=== PATIENT | female | born 1955 | race Caucasian/White ===

== ENCOUNTER 2019-03-27 14:12 | Emergency (ER) | payer BC ==
[2019-03-27] MEDS ORDERED: Levofloxacin 250 MG Tab PO ONE (14:38)
[2019-03-27] MEDS ORDERED: Phenazopyridine 95 MG Tab PO ONE (14:38)
--- NOTE | 2019-03-27 14:50 | EDM.PDOC ---
ED HPI GENERAL MEDICAL PROBLEM - General Chief Complaint: Genitourinary Problem Stated Complaint: PAIN WHILE URINATING Time Seen by Provider: 03/27/19 14:27 Source of Information: Reports: Patient History Limitations: Reports: No Limitations - History of Present Illness INITIAL COMMENTS - FREE TEXT/NARRATIVE: 63-year-old female presents to the ED with acute onset of dysuria on Thursday evening March 25. Yesterday wasn't too bad she noticed that she had mild dysuria and some frequency. Overnight however things worsen to the point that she is now voiding every 15 minutes with a strong sense of urgency and severe dysuria. She did have some nausea and vomiting 1 on Thursday night and one diarrhea stool and then is better. She doesn't think she is running a fever and has no back pain. Currently she has lower abdominal discomfort mostly suprapubically. He said urinary tract infections before but not for a lengthy period of time. Onset: Sudden Onset Date: 03/25/19 (Mild dysuria Thursday night.) Duration: Day(s):, Getting Worse Location: Reports: Abdomen (Suprapubic lower abdomen with urinary frequency) Quality: Reports: Burning ( and urgency almost every 15-20 minutes severe dysuria and now noted blood in the urine. ) Severity: Severe Improves with: Reports: None Worsens with: Reports: None Associated Symptoms: Reports: No Other Symptoms Treatments [employer] SUPERINTENDENT: Reports: Other (see below) Other Treatments [employer] SUPERINTENDENT: motrin Right Lower Bladder Pain Score (Numeric/FACES): 9 - Related Data Allergies Allergy/AdvReac Type Severity Reaction Status Date / Time No Known Allergies Allergy Verified 03/27/19 14:28 Home Meds: Home Meds Phenazopyridine HCl [Pyridium] 100 mg PO Q6H PRN #4 tablet 03/27/19 [Rx] levoFLOXacin [Levaquin] 500 mg PO DAILY #6 tab 03/27/19 [Rx] Past Medical History - Past Health History Medical/Surgical History: Denies Medical/Surgical History Genitourinary History: Reports: Other (See Below) (Occasional UTI in the past) Social & Family History - Tobacco Use Smoking Status *Q: Never Smoker - Caffeine Use Caffeine Use: Reports: Coffee, Tea - Recreational Drug Use Recreational Drug Use: No - Living Situation & Occupation Living situation: Reports: ED ROS GENERAL - Review of Systems Review Of Systems: See Below Constitutional: Reports: Malaise, Fatigue (From being up a lot during the night to void.). Denies: Fever, Chills HEENT: Reports: Glasses Respiratory: Reports: No Symptoms Cardiovascular: Reports: No Symptoms Endocrine: Reports: No Symptoms GI/Abdominal: Reports: Abdominal Pain (Suprapubic abdominal pain related to dysuria urgency and frequency. She has terminal dysuria as well) : Reports: Dysuria, Frequency, Hematuria (Terminal dysuria urine turned bloody this afternoon), Urgency, Other. Denies: Flank Pain Musculoskeletal: Reports: No Symptoms Skin: Reports: No Symptoms Neurological: Reports: No Symptoms Psychiatric: Reports: No Symptoms Hematologic/Lymphatic: Reports: No Symptoms Immunologic: Reports: No Symptoms ED EXAM, RENAL/ - Physical Exam Exam: See Below Exam Limited By: No Limitations General Appearance: Alert, WD/WN, Mild Distress, Other (Pulses 125 at rest. Respiratory 20. She appears to be quite anxious. BP elevated at 178/94.) Respiratory/Chest: No Respiratory Distress, Lungs Clear, Normal Breath Sounds, No Accessory Muscle Use, Chest Non-Tender Cardiovascular: Normal Peripheral Pulses, No Murmur, No Rub, Tachycardia ( Resting tachycardia at 1 15/m.) GI/Abdominal: Normal Bowel Sounds, Soft, Tender (Tender suprapubically only.) Back Exam: No: CVA Tenderness (L), CVA Tenderness (R), Paraspinal Tenderness Extremities: Normal Inspection, Normal Range of Motion, Non-Tender, No Pedal Edema Neurological: Alert, Oriented, CN II-XII Intact, Normal Cognition Psychiatric: Anxious Skin Exam: Warm, Dry, Intact, Normal Color, No Rash Course - Vital Signs Last Recorded V/S: Last Vital Signs Temp 36.7 C 03/27/19 14:27 Pulse 125 H 03/27/19 14:27 Resp 20 03/27/19 14:27 BP 178/94 H 03/27/19 14:27 Pulse Ox 98 03/27/19 14:27 - Orders/Labs/Meds Orders: Active Orders 24 hr Category Date Time Status CULTURE URINE [RM] Stat Lab 03/27/19 14:50 Received Phenazopyridine [Urinary Pain Relief] Med 03/27/19 19:00 Active 95 mg PO TIDPC Medication Orders Phenazopyridine HCl (Urinary Pain Relief) 95 mg PO TIDPC TRACY Labs: Laboratory Tests 03/27/19 Range/Units 14:50 Urine Color Brown H (Yellow) Urine Appearance Cloudy H (Clear) Urine pH 6.0 (5.0-8.0) Ur Specific Barney 1.025 (1.005-1.030) Urine Protein 3+ H (Negative) Urine Glucose (UA) Negative (Negative) Urine Ketones 1+ H (Negative) Urine Occult Blood 3+ H (Negative) Urine Nitrite Positive H (Negative) Urine Bilirubin 1+ H (Negative) Urine Urobilinogen 1.0 (0.2-1.0) Ur Leukocyte Esterase Negative (Negative) Urine RBC Too numerous to cnt H (0-5) /hpf Urine WBC 0-5 (0-5) /hpf Ur Epithelial Cells Not seen (0-5) /hpf Urine Bacteria Few (FEW) /hpf Urine Mucus Few (FEW) /hpf Meds: Medications Generic Name Dose Route Start Last Admin Trade Name Freq PRN Reason Stop Dose Admin Phenazopyridine HCl 95 mg 03/27/19 19:00 Urinary Pain Relief PO TIDPC TRACY Discontinued Medications Generic Name Dose Route Start Last Admin Trade Name Freq PRN Reason Stop Dose Admin Levofloxacin 500 mg 03/27/19 14:38 03/27/19 15:02 Levaquin PO 03/27/19 14:39 500 mg ONETIME ONE Administration Phenazopyridine HCl 95 mg 03/27/19 14:38 03/27/19 15:02 Urinary Pain Relief PO 03/27/19 14:39 95 mg ONETIME ONE Administration - Radiology Interpretation Free Text/Narrative:: 63-year-old female presents to the ED with acute onset of dysuria on March 25. She states yesterday symptoms weren't as bad she had some frequency but very minimal dysuria. Overnight however the dysuria worsened to the point that she is now voiding every 15-20 minutes and the urine has turned bloody. UTIs in the past but not for a lengthy period of time. No associated fever chills nausea vomiting today. She did have vomiting 1 and diarrhea stool 1 on March 25 evening. She ate and drank normally yesterday. She may have picked up a viral gastroenteritis versus foodborne illness. On examination she has suprapubic tenderness no costovertebral angle tenderness. Plan urinalysis and urine culture. I will give her Pyridium 95 mg by mouth and Levaquin 500 mg by mouth. - Re-Assessments/Exams Free Text/Narrative Re-Assessment/Exam: 03/27/19 16:03 Urinalysis shows brown colored urine with 3+ proteinuria 1+ ketones and 3+ occult blood. Positive nitrates and negative leukocyte esterase and too numerous to count RBCs. No white cells seen. Patient is highly symptomatic and a urine culture will be ordered. We'll treat her appropriately with Levaquin 500 mg once daily for a full 6 more days. Pyridium 100 mg every 6 hours as needed 5 tablets provided. Continue to use Motrin 6 mg every 6 hours needed for pain relief. Departure - Departure Time of Disposition: 16:04 Disposition: Home, Self-Care 01 Condition: Fair Clinical Impression: Lower urinary tract infection, acute - Discharge Information *PRESCRIPTION DRUG MONITORING PROGRAM REVIEWED*: No *COPY OF PRESCRIPTION DRUG MONITORING REPORT IN PATIENT GAGAN: No Prescriptions: levoFLOXacin [Levaquin] 500 mg PO DAILY #6 tab Phenazopyridine HCl [Pyridium] 100 mg PO Q6H PRN #4 tablet PRN Reason: Relief of severe dysuria Instructions: Urinary Tract Infection, Adult Referrals: PCP,None [Primary Care Provider] - Forms: ED Department Discharge Additional Instructions: Evaluation in the emergency room today in regards to development of lower urinary tract infection with burning on voiding and severe urgency and frequency over the last 36 hours. The urine also has blood in it indicating significant infection. Treatment was started in the emergency room with Levaquin 500 mg by mouth and Pyridium 95 mg by mouth. Treatment at home is to be Levaquin 500 mg once daily for another 6 days with the next tablet due at dinnertime tomorrow. May use Pyridium 100 mg every 6 hours to relieve burning when voiding and urgency and frequency until feeling better which should be in about 12-16 hours. - My Orders Last 24 Hours: My Active Orders 03/27/19 14:50 CULTURE URINE [RM] Stat 03/27/19 19:00 Phenazopyridine [Urinary Pain Relief] 95 mg PO TIDPC - Assessment/Plan Last 24 Hours: My Active Orders 03/27/19 14:50 CULTURE URINE [RM] Stat 03/27/19 19:00 Phenazopyridine [Urinary Pain Relief] 95 mg PO TIDPC
[2019-03-27] MEDS ORDERED: Phenazopyridine 95 MG Tab ONE (16:20)
[2019-03-27] MEDS ORDERED: Phenazopyridine 95 MG Tab PO SCH (19:00)
== END 2019-03-27 16:25 | disposition home or self-care (01) ==
LOC: JD.ED 14:12
DX: N39.0 Urinary tract infection, site not specified (principal)
CPT/HCPCS: 81001; 87086; 87088; 87186; 99283; A9270

== ENCOUNTER 2024-11-13 20:37 | Emergency (ER) | payer MEDICARE, OTHER ==
[2024-11-13 21:42] LABS: BASOPHILS ABSOLUTE AUTO 0.1 K/mm3 (0.0-0.2); BASOPHILS PERCENT AUTO 0.9 % (0.0-1.0); EOSINOPHILS ABSOLUTE AUTO 0.2 K/mm3 (0.0-0.4); EOSINOPHILS PERCENT AUTO 2.8 % (0.0-6.0); HEMATOCRIT 42.9 % (37.0-47.0); IMMATURE GRAN ABSOLUTE AUTO 0.02 K/mm3 (0.00-0.05); IMMATURE GRAN PERCENT AUTO 0.3 % (0.0-0.4); LYMPHOCYTES ABSOLUTE AUTO 2.6 K/mm3 (1.0-4.8); LYMPHOCYTES PERCENT AUTO 38.3 % (24.0-44.0); MEAN CORPUSCULAR HEMOGLOBIN 27.5 pg (28.0-32.0); MEAN CORPUSCULAR HGB CONC 32.6 g/dl (32.0-36.0); MEAN CORPUSCULAR VOLUME 84.3 fl (83.0-99.0); MEAN PLATELET VOLUME 8.8 fl (9.4-12.3); MONOCYTES ABSOLUTE AUTO 0.5 K/mm3 (0.0-0.8); NEUTROPHILS ABSOLUTE AUTO 3.3 K/mm3 (1.8-7.7); NEUTROPHILS PERCENT AUTO 49.7 % (41.0-71.0); PLATELET COUNT,PLT 359 K/mm3 (150-400); RED BLOOD CELL COUNT 5.09 M/mm3 (4.10-5.30); WHITE BLOOD CELL COUNT,WBC 6.73 K/mm3 (3.9-11.3)
[2024-11-13] MEDS: Sodium Chloride 0.9% 10 ML Syringe FLUSH PRN (21:55)
[2024-11-13] MEDS: Iopamidol 612 MG/ML 100 ML Bottle IVPUSH ONE (21:55)
[2024-11-13] MEDS: Iopamidol 612 MG/ML 30 ML SDV IVPUSH ONE (21:55)
[2024-11-13 22:04] LABS: A/G RATIO 1.1 (1-2); ALBUMIN 3.7 g/dl (3.4-5.0); ANION GAP 13.3 (5-15); BILIRUBIN TOTAL 0.3 mg/dL (0.2-1.0); BUN/CREATININE RATIO 17.7 (14-18); CALCIUM 9.2 mg/dL (8.5-10.1); CREATININE 1.3 mg/dL (0.55-1.02); EST CRCL DRUG DOSING (CG) 31.85 mL/min; POTASSIUM,K 3.3 mEq/L (3.5-5.1); PROTEIN TOTAL,TP 7.2 g/dl (6.4-8.2)
[2024-11-13] MEDS: Sodium Chloride 0.9% 500 ML IV ONE (22:26)
[2024-11-14 00:13] LABS: APPEARANCE,URINE CLEAR (Clear); BILIRUBIN,URINE NEGATIVE (Negative); COLOR,URINE LIGHT YELLOW (Yellow); GLUCOSE,URINE NEGATIVE (Negative); KETONES,URINE NEGATIVE (Negative); LEUKOCYTE ESTERASE,URINE NEGATIVE (Negative); NITRITE,URINE NEGATIVE (Negative); OCCULT BLOOD,URINE NEGATIVE (Negative); PROTEIN,URINE NEGATIVE (Negative); UROBILINOGEN,URINE 0.2 (0.2-1.0)
== END 2024-11-13 23:56 | disposition home or self-care (01) ==
LOC: JD.ED 20:37
DX: K92.1 Melena (principal); K52.9 Noninfective gastroenteritis and colitis, unspecified; Z79.899 Other long term (current) drug therapy
CPT/HCPCS: 36415; 74177; 80053; 85025; 86850; 86900; 86901; 96360; 99285; J7030; Q9967; 99284